=== PATIENT | male | born 1955 ===

== ENCOUNTER 2024-12-09 09:51 | Outpatient (REF) | payer MEDICARE, MEDICAID, SELFPAY ==
--- NOTE | 2024-12-09 09:57 | PFT_ITS ---
Flows: FEV1: 77 % of predicted at 2.06 L FVC: 62 % of predicted at 2.17 L FEV1/FVC: 95 % Bronchodilator response: Absent Volumes: Total lung capacity: 55 % of predicted at 3.33 L Residual volume: 59 % of predicted at 1.27 L Slow vital capacity: 54 % of predicted at 2.06 L Expiratory reserve volume: 90 % of predicted at 0.86 L Diffusion capacity: Severely decreased, adjusts to being mildly decreased after correction for alveolar ventilation. Impression: Moderate restrictive ventilatory defect with no bronchodilator response. Decreased diffusion capacity together with restrictive ventilatory defect suggests underlying pulmonary parenchymal disease. Clinical correlation is advised. MTDD
--- OUTSIDE RECORDS SUMMARY | 2024-12-09 10:35 | XMS_ITS | Patient Health Record ---
Author Organization [facility] Address [address], [place] [id number] Care Team Providers Care Booking Supervisor Name Role Phone Dillon Cameron Primary Care Provider [facility], Nursing Unavailable [phone] ShantelFlor landers Unavailable [phone] Nelson Briones Unavailable [phone] Allergies Allergen (clinical drug ingredient) Drug/Non Drug Allergy documented on EMR Reaction Allergy Type Onset Date Status metformin metFORMIN stomach upset Drug Allergy Act leann Results Component Value Reference Range Notes MICROALBUMIN, RANDOM URINE ( W/CREATININE) Reviewed date:06/25/2024 10:24:20 PM Interpretation:Normal Performing Lab:NL2, [employer] [facility] [address] [place], [place] [id number] Zayda Cotton Notes/Report: FASTING: UNKNOWN CREATININE, RANDOM URINE 72 20-320 mg/dL ALBUMIN, URINE 1.9 See Note: mg/dL Reference Range: Reference Range Not established ALBUMIN/CREATININE RATIO, RANDOM URINE 26 <30 mg/g creat The ADA defines abnormalities in albumin excretion as follows: Albuminuria Category Result (mg/g creatinine) Normal to Mildly increased <30 Moderately increased 30-299 Severely increased > OR = 300 The ADA recommends that at least two of three specimens collected within a 3-6 month period be abnormal before considering a patient to be within a diagnostic category. NO COLLECTION DATE RECEIVED. WE HAVE USED THE DATE THE SPECIMEN WAS RECEIVED BY THIS LABORATORY THE COLLECTION DATE. IF THIS IS INCORRECT, PLEASE CONTACT CLIENT SERVICES. PHONE NUMBER: Blood Sugar/finger stick Reviewed date:08/16/2024 02:39:22 PM Interpretation:High 166 Performing Lab: Notes/Report: High 166 COMPREHENSIVE METABOLIC [facility] Reviewed date:11/11/2024 12:10:14 PM Interpretation:Normal Performing Lab:NL2, [employer] [facility] Debbiecristian China Cotton Notes/Report: NON-FASTING NON-FASTING GLUCOSE 112 65-99 mg/dL Fasting reference interval For someone without known diabetes, a glucose value between 100 and 125 mg/dL is consistent with prediabetes and should be confirmed with a follow-up test. UREA NITROGEN (BUN) 15 7-25 mg/dL CREATININE 0.89 0.70-1.28 mg/dL EGFR 92 > OR = 60 mL/min/1.73m2 BUN/CREATININE RATIO SEE NOTE: 6-22 (calc) Not Reported: BUN and Creatinine are within reference range. SODIUM 137 135-146 mmol/L POTASSIUM 4.0 3.5-5.3 mmol/L CHLORIDE 104 98-110 mmol/L CARBON DIOXIDE 26 20-32 mmol/L CALCIUM 8.8 8.6-10.3 mg/dL PROTEIN, TOTAL 7.7 6.1-8.1 g/dL ALBUMIN 4.3 3.6-5.1 g/dL GLOBULIN 3.4 1.9-3.7 g/dL (calc) ALBUMIN/GLOBULIN RATIO 1.3 1.0-2.5 (calc) BILIRUBIN, TOTAL 0.5 0.2-1.2 mg/dL ALKALINE PHOSPHATASE 81 35-144 U/L AST 16 10-35 U/L ALT 10 9-46 U/L HEMOGLOBIN A1c Reviewed date:11/21/2024 09:42:59 AM Interpretation:7.9 Performing Lab:NL2, [employer] [facility] Zayda Cotton Notes/Report: NON-FASTING NON-FASTING HEMOGLOBIN A1c 7.9 <5.7 % For someone without known diabetes, a hemoglobin A1c value of 6.5% or greater indicates that they may have diabetes and this should be confirmed with a follow-up test. For someone with known diabetes, a value <7% indicates that their diabetes is well controlled and a value greater than or equal to 7% indicates suboptimal control. A1c targets should be individualized based on duration of diabetes, age, comorbid conditions, and other considerations. Currently, no consensus exists regarding use of hemoglobin A1c for diagnosis of diabetes for children. GLYCOHEMOGLOBIN PROFILE Reviewed date:03/10/2024 05:15:29 PM Interpretation:7.3 Performing Lab: Notes/Report: Original Ordering Provider: DILLON CAMERON MD [employer], [place] [address] Coater Associate - Katja Rodarte MD GLYCATED HEMOGLOBIN A1C 7.3 <6.5 % ESTIMATED AVERAGE GLUCOSE 163 PROSTATIC SPECIFIC ANTIGEN Reviewed date:03/10/2024 05:18:04 PM Interpretation:4.3 Performing Lab: Notes/Report: Original Ordering Provider: DILLON CAMERON MD [employer], [place] [address] Coater Associate - Katja Rodarte MD PROSTATIC SPECIFIC ANTIGEN 4.3 0.0-4.0 ng/mL The Siemens Advia Spryaur Chemiluminescent Immunoassay is used. Results obtained with different assay methods or kits cannot be used interchangeably. Results cannot be interpreted as absolute evidence of the presence or absence of malignant disease MICROALB/CREAT RATIO, RANDOM Reviewed date:03/10/2024 05:15:41 PM Interpretation:35 Performing Lab: Notes/Report: Original Ordering Provider: DILLON CAMERON MD [employer], [place] [address] Coater Associate - Katja Rodarte MD MICROALBUMIN, RANDOM 12.7 0.0-29.0 mg/L MICROALB/CRE RATIO RANDOM 35.2 0.0-30.0 mg/G CREATININE, RANDOM URINE 36 CBC Reviewed date:05/25/2024 10:26:49 AM Interpretation:Normal Performing Lab: Notes/Report: Normal HEMATOCRIT 48 HEMOGLOBIN 15.0 MCV 96 PLT COUNT 237 WBC 9.0 COMPREHENSIVE METABOLIC PANE L Reviewed date:05/25/2024 10:28:17 AM Interpretation:Alk phos 129 Performing Lab: Notes/Report: Alk phos 129 ALBUMIN 4.4 ALK PHOS 129 SGPT 14 SGOT 16 BILI,TOTAL 0.3 BUN 16 CALCIUM 9.9 CHLORIDE 100 CO2 27 CREAT 1.00 GLUCOSE 109 POTASSIUM 4.3 SODIUM 139 TOTAL PROTEIN 7.9 IRON AND TOTAL IRON BINDING CAPACITY Reviewed date:05/25/2024 10:29:05 AM Interpretation:Normal Performing Lab: Notes/Report: Normal IRON, TOTAL 81 IRON BINDING CAPACITY 349 % SATURATION 23 FERRITIN Reviewed date:05/25/2024 10:59:34 AM Interpretation:Normal Performing Lab: Notes/Report: Normal FERRITIN 104 IGA Reviewed date:05/25/2024 11:00:12 AM Interpretation:Normal Performing Lab: Notes/Report: Normal IGA 309 TISSUE TRANSGLUTAMINASE AB, IGA Reviewed date:05/25/2024 11:00:53 AM Interpretation:Normal Performing Lab: Notes/Report: Normal TISSUE TRANSGLUTAMINASE <2 C-REACTIVE PROTEIN Reviewed date:05/25/2024 11:01:34 AM Interpretation:Normal Performing Lab: Notes/Report: Normal C-REACTIVE PROTEIN 3 Diabetic Eye Exam Reviewed date:06/23/2024 02:52:48 PM Interpretation:stable Performing Lab: Notes/Report: stable Diabetic Foot Exam Reviewed date:06/23/2024 03:08:39 PM Interpretation:Normal Performing Lab: Notes/Report: Normal Reason For Referral Reason root canal post [place] n for teeth 6 and 18 Referral Organization [facility] Referring Provider First Name Flor Referring Provider Last Name Job Referring Provider Speciality Dental Gen eral Practice Referred Provider [facility] Referred Provider Specialty Dental Gener al Practice General Notes Ninoska Ortez 03:31:29 PM >Gave patient copy of xrays and referral Referral Priority Routine Reason Left shouldr pian wi th minimal resonse to injection in November; unable to tolerate PT. ?tear; ?caulitis;?other Diagnosis 1 Bursitis of left cathy ulder (M75.52) Referral Organization [facility] Referring Provider First Name Dillon Referring Provider Last Name Nisha Referring Provider Speciality Internal M edicine Referred Provider [facility] Referred Provider Specialty Orthopedic S urgery General Notes Rossy Rendon 10/2023 09:54:56 AM >Notes faxed to [phone],phone# [phone], Kasey Tavera 04/05/2024 11:01:58 AM > pt attended notes requestedAyse Katelyn 04/18/2024 03:18:14 PM > notes received and put into provider's folder Referral Priority Routine Referral Appointment Date 03/29/2024 Reason [facility] Urology PSa gradually increasing-now over 4 (Please send all PSA results with consult request) Diagnosis 1 Elevated prostate sp ecific antigen [PSA] (R97.20) Referral Organization [facility] Referring Provider First Name Dillon Referring Provider Last Name Eloysuman Referring Provider Speciality Internal M edicine Referred Provider Specialty Urology General Notes Kasey Tavera 11/30/2024 02:13:33 PM > p/w faxed with labs Referral Priority Routine Medications Medication SIG (Take, Route, Frequency, Duration) Notes Start Date End Date Status Sildenafil Citrate 100 mg 1 tab(s) orally one hour before sexual activity for 30 days sent to [facility] 09/16/2022 Active Trulicity Pen 3 mg/0.5 mL as DIRECTED INJECT SUBCUTANEOUSLY ONCE A WEEK 28 DAYS subcutaneously once a week for 28 days Diagnosis E11.9; replaces 1.5 mg dose Active famotidine 40 mg 1 tab(s) orally once a day (at bedtime) for 30 days 07/09/2023 Active simvastatin 20 mg 1 tab(s) orally once a day (at bedtime) for 30 day(s) Active FreeStyle Lite Glucose Monitor, 1 for 100 days Active Aspirin Low Dose 81 mg TAKE ONE TABLET BY MOUTH ONCE DAILY for 90 days Active FreeStyle Lite Test Strips, 50 E11.9 tests daily for 50 days E11.9; testing 1 times a day Active lisinopril 10 mg 1 tab(s) orally once a day for 30 days note dose change Active tamsulosin 0.4 mg 2 cap(s) orally once a day for 30 day(s) Active pregabalin 100 mg 1 cap(s) orally 2 times a day; on or after 11/01/23 for 30 days 10/10/2024 Active Terbinafine Hydrochloride, Topical 1% 1 renea applied topically 2 times a day for 14 days 12/29/2023 Not-Taking Farxiga 10 mg TAKE 1 TAB BY MOUTH EVERY DAY ORALLY ONCE A DAY 30 DAYS for 30 Active glipiZIDE 10 mg 1 tab(s) orally twic e a day for 30 days Active Freestyle Lancet, 100 tests twice a day for 50 days 02/26/2022 Active Metoprolol Succinate ER 25 mg TAKE 1 TAB ORALLY ONCE A DAY (REPLACES METOPTOLOL TARTRATE 25 2/DAY) for 30 Active Immunizations Vaccine Route Administration Date Status Comme nts Moderna Covid-19 Vaccine Administration - Second Dose (Single Dose 100 MCG/0.5ML 2ND) Unknown 06/13/2021 Administered Twinrix Hep A/Hep B Unknown 05/04/2019 Administered PPSV 23 Unknown 05/04/2019 Administered Moderna Covid-19 Booster Administration - Third Dose (Single Dose 50 mcg/0.25 mL Unknown 07/23/2020 Administered Moderna Covid-19 Booster Administration - Third Dose (Single Dose 50 mcg/0.25 mL Unknown 08/21/2020 Administered Hepatitis B (20 or more) Unknown 05/23/2021 Administered Td Unknown 05/23/2021 Administered MMR Unknown 05/13/2021 Administered Influenza Unknown 05/29/2021 Administered Moderna Covid-19 Booster Administration - Third Dose (Single Dose 50 mcg/0.25 mL Unknown 11/14/2021 Administered Influenza Unknown 04/24/2020 Administered Hepatitis B (20 or more) Unknown 05/27/2017 Administered Hepatitis B (20 or more) Unknown 05/04/2019 Administered Influenza IM Intramuscular 04/01/2022 Administered PCV 13 IM Intramuscular 05/04/2019 Administered Moderna Covid-19 Booster Administration - Third Dose (Single Dose 50 mcg/0.25 mL IM Intramuscular 10/09/2022 Administered Influenza IM Intramuscular 05/21/2023 Administered Hepatitis A IM Intramuscular 06/30/2023 Administered [facility] [id number] Shingrix (Zoster) Unknown 10/22/2022 Administered Flu-IIV4, p-free Unknown 05/05/2018 Administered MMR Unknown 05/27/2017 Administered Fluzone Unknown 05/19/2016 Administered Td Unknown 06/09/2015 Administered COMIRNATY Pfizer COVID-19 Vaccine 12y+ Unknown 06/05/2023 Administered Fluzone Unknown 04/19/2013 Administered Fluzone Unknown 05/03/2014 Administered Fluzone Unknown 05/06/2017 Administered Shingrix (Zoster) Unknown 01/20/2023 Administered COMIRNATY Pfizer COVID-19 Vaccine 12y+ Unknown 06/24/2024 Administered Influenza Unknown 06/24/2024 Administered Social History Tobacco Use: Social History Observation Description Date Details (start date - stop date) Never Smoker NA - NA Sex Assigned At : Social History Observation Description Sex Assigned At Male Tobacco Use Assessment MU Question Answer Notes What is your current smoking status? nonsmoker Problems Problem Type SNOMED Code ICD Code Onset Dates Problem Status W/U Status Risk Notes Problem Type II diabetes mellitus without complication (019698801) Type 2 diabetes mellitus without complications (E11.9) Active confirmed Problem Overweight (439082386) Overweight (E66.3) Active confirmed Problem Hyperlipidemia (73912412) Hyperlipidemia, unspecified (E78.5) Active confirmed Problem Essential hypertension (77640901) Essential (primary) hypertension (I10) Active confirmed Problem Acute non-ST segment elevation myocardial infarction (638233075) Non-ST elevation (NSTEMI) myocardial infarction (I21.4) Active confirmed Problem Atherosclerotic heart disease of [place] coronary artery without angina pectoris (955571969765487) Atherosclerotic heart disease of [place] coronary artery without angina pectoris (I25.10) Active confirmed Problem Allergic rhinitis due to food (519921735) Allergic rhinitis due to food (J30.5) Active confirmed Problem Left side sciatica (589730291813799) Sciatica, left side (M54.32) Active confirmed Problem Diastasis of muscle (268804997) Separation of muscle (nontraumatic), unspecified site (M62.00) Active confirmed Problem Bursitis of left shoulder (419311074794859) Bursitis of left shoulder (M75.52) Active confirmed Problem Erectile dysfunction (disorder) (976411134) Erectile dysfunction due to diseases classified elsewhere (N52.1) Active confirmed Problem Dysphagia (70157408) Dysphagia, unspecified (R13.10) Active confirmed Problem Lower urinary tract symptoms due to benign prostatic hypertrophy (63063044126467) Benign prostatic hyperplasia with lower urinary tract symptoms (N40.1) Active confirmed Problem Body mass index 25-29 - overweight (598456721) Body mass index [BMI] 28.0-28.9, adult (Z68.28) Active confirmed Problem Sheltered homelessness (653416895141939) Sheltered homelessness (Z59.01) Active confirmed Vital Signs Temperature 96.8 degrees Fahrenheit 11/10/2024 Blood pressure diastolic 66 11/10/2024 Oximetry 96 11/10/2024 Height 65 in 11/10/2024 Blood pressure systolic 118 11/10/2024 Weight 161.8 lbs 11/10/2024 BMI 26.92 kg/m2 11/10/2024 Procedures Procedure Date Ordered Date Performed Result Body Sit e Pulmonary Function Test 11/10/2024 Faxed to [facility] ECHO EXAM OF HEART 11/10/2024 Faxed to [facility] COLONOSCOPY FOR FOREIGN BODY 05/25/2024 10/13/2024 Negative EGD 05/25/2024 10/13/2024 Normal Encounters Encounter Location Date Provider Diagnosis [facility] [address] [place] [address] [place] [id number] 03/01/2024 Dillon Cameron Type 2 diabetes mellitus without complications E11.9 and Benign prostatic hyperplasia with lower urinary tract symptoms N40.[address] [phone] 12/10/2023 Nelson Briones [facility] [address], [place] [id number] 12/29/2023 Dillon Cameron Encounter for screening for COVID-19 Z11.52 ; Type 2 diabetes mellitus without complications E11.9 ; Essential (primary) hypertension I10 ; Tinea cruris B35.6 ; Sciatica, left side M54.32 ; Atherosclerotic heart disease of [place] coronary artery without angina pectoris I25.10 ; Sheltered homelessness Z59.01 and Diarrhea, unspecified R19.7 [facility] [address] [phone] 02/09/[address] [id number] 03/08/2024 Dillon Cameron Type 2 diabetes mellitus without complications E11.9 and Bursitis of left shoulder M75.[address] [id number] 03/09/2024 Nursing [facility] Encounter for screening, unspecified Z13.9 [facility] [address] [address] 03/22/2024 [facility] [address], [place] [id number] 03/29/2024 Dillon Cameron Encounter for screening for COVID-19 Z11.52 ; Elevated prostate specific antigen [PSA] R97.20 ; Type 2 diabetes mellitus without complications E11.9 ; Essential (primary) hypertension I10 ; Bursitis of left shoulder M75.52 ; Hyperlipidemia, unspecified E78.5 and Overweight E66.3 [facility] [address] [id number] 06/23/2024 Dillon Cameron Type 2 diabetes mellitus without complications E11.9 ; Encounter for screening for COVID-19 Z11.52 ; Sheltered homelessness Z59.01 ; Benign prostatic hyperplasia with lower urinary tract symptoms N40.1 ; Bursitis of left shoulder M75.52 ; Atherosclerotic heart disease of [place] coronary artery without angina pectoris I25.10 and Essential (primary) hypertension I10 [address] [id number] 08/16/2024 Dillon Cameron Encounter for screening for COVID-19 Z11.52 ; Type 2 diabetes mellitus without complications E11.9 ; Sheltered homelessness Z59.01 ; Essential (primary) hypertension I10 and Bursitis of left shoulder M75.52 [facility] [address] [id number] 11/10/2024 Dillon Cameron Type 2 diabetes mellitus without complications E11.9 ; Dyspnea, unspecified R06.00 ; Encounter for screening for COVID-19 Z11.52 and Essential (primary) hypertension I10 [address] [id number] 12/29/2023 Dillon Cameron [address] [id number] 01/04/2024 Dillon Cameron [address] [id number] 02/08/2024 Dillon Cameron Type 2 diabetes mellitus without complications E11.[address] [id number] 02/19/2024 Dillon Cameron [address] [id number] 02/23/2024 Dillon Cameron Type 2 diabetes mellitus without complications E11.[address] [id number] 02/28/2024 Dillon Cameron [address] [id number] 03/01/2024 Dillon Cameron [address] [id number] 03/08/2024 Dillon Cameron [address] [id number] 03/16/2024 Dillon Cameron [address] [id number] 03/29/2024 Dillon Cameron [address] [id number] 04/19/2024 Dillon Cameron [address] [id number] 09/27/2024 Dillon Cameron Assessments Encounter Date Diagnosis (ICD Code) Assessment Notes Treatment Notes Treatment Clinical Notes Section Notes 03/01/2024 Type 2 diabetes mellitus without complications (ICD-10 - E11.9) 12/29/2023 Type 2 diabetes mellitus without complications (ICD-10 - E11.9) His fastings are at intermedtaie goal-most under 140. Stacia stay put on meds and work diet Sees eye care in 12/29/2023 Encounter for screening for COVID-19 (ICD-10 - Z11.52) Covid screening is negative. Discussed in detail with patient how to practice social distancing by avoiding public spaces and crowds now, wearing a mask in public to keep nose and mouth covered, and washing hands frequently especially before eating and after using the bathroom. Return to clinic if you develop any symtpoms of concern to be rescreened or go to the emergency room if you are having concerning symptoms for COVID-19. 03/08/2024 Type 2 diabetes mellitus without complications (ICD-10 - E11.9) sound likehe is doing well. Advised he needs labs. Strip rx sent 03/08/2024 Bursitis of left shoulder (ICD-10 - M75.52) As satted before, time forortho. Will leththme decide on advanced imaging need. May inject again and try to rehab but really failed first injetcion 03/09/2024 Encounter for screening, unspecified (ICD-10 - Z13.9) Lab work drawn as ordered, per protocol using aseptic technique. Client will be notified of all lab values within two weeks, Client agrees with plan, allowed to clarify questions about plan. 03/29/2024 Elevated prostate specific antigen [PSA] (ICD-10 - R97.20) reviewed the uncertain predictive value of PSA at just iver 4 and why I wanted urology opinion. He understood. No sx at his time 03/29/2024 Encounter for screening for COVID-19 (ICD-10 - Z11.52) Covid screening is negative. Discussed in detail with patient how to practice social distancing by avoiding public spaces and crowds now, wearing a mask in public to keep nose and mouth covered, and washing hands frequently especially before eating and after using the bathroom. Return to clinic if you develop any symtpoms of concern to be rescreened or go to the emergency room if you are having concerning symptoms for COVID-19. 06/23/2024 Type 2 diabetes mellitus without complications (ICD-10 - E11.9) Interestign bump up in glucose after shoulder shot. I am increasing Trulicyt to 3 mg and he is working on diet. Will see ehwre this goes. Could go ozempoic next 08/16/2024 Type 2 diabetes mellitus without complications (ICD-10 - E11.9) He ahd nmoved rx's to [facility] and lkast Truliciuty wne [facility]. Resnt todya. Stacia see hoe much prgress he makes 08/16/2024 Encounter for screening for COVID-19 (ICD-10 - Z11.52) Covid screening is negative. Discussed in detail with patient how to practice social distancing by avoiding public spaces and crowds now, wearing a mask in public to keep nose and mouth covered, and washing hands frequently especially before eating and after using the bathroom. Return to clinic if you develop any symtpoms of concern to be rescreened or go to the emergency room if you are having concerning symptoms for COVID-19. 11/10/2024 Type 2 diabetes mellitus without complications (ICD-10 - E11.9) Fastings still above goal but improving. For now stacia follow pending A1C result 11/10/2024 Dyspnea, unspecified (ICD-10 - R06.00) Soemwhat progressive sx,. I am concerned about the crackles and see this as more possible ILD than cardiac. Charles lemuel to go after both: CXR (May need CT); PFT; echo. Incarcerated a long time; not sure abotu occupational background 02/08/2024 Type 2 diabetes mellitus without complications (ICD-10 - E11.9) 02/23/2024 Type 2 diabetes mellitus without complications (ICD-10 - E11.9) 03/01/2024 Benign prostatic hyperplasia with lower urinary tract symptoms (ICD-10 - N40.1) 12/29/2023 Essential (primary) hypertension (ICD-10 - I10) BP now low. I am backing off beta cassandra a bit and if stays 90 then ACEI next 03/29/2024 Type 2 diabetes mellitus without complications (ICD-10 - E11.9) prince much improved on Trulicty-contin ue with his Farxiga and glipi. 06/23/2024 Encounter for screening for COVID-19 (ICD-10 - Z11.52) Covid screening is negative. Discussed in detail with patient how to practice social distancing by avoiding public spaces and crowds now, wearing a mask in public to keep nose and mouth covered, and washing hands frequently especially before eating and after using the bathroom. Return to clinic if you develop any symtpoms of concern to be rescreened or go to the emergency room if you are having concerning symptoms for COVID-19. 08/16/2024 Sheltered homelessness (ICD-10 - Z59.01) Issues with temp control at his facility 11/10/2024 Encounter for screening for COVID-19 (ICD-10 - Z11.52) Covid screening is negative. Discussed in detail with patient how to practice social distancing by avoiding public spaces and crowds now, wearing a mask in public to keep nose and mouth covered, and washing hands frequently especially before eating and after using the bathroom. Return to clinic if you develop any symtpoms of concern to be rescreened or go to the emergency room if you are having concerning symptoms for COVID-19. 12/29/2023 Tinea cruris (ICD-10 - B35.6) Work on dryness and terbinafine for 2 weeks 03/29/2024 Essential (primary) hypertension (ICD-10 - I10) BP excellent and satying on lisino and beta cassandra 06/23/2024 Sheltered homelessness (ICD-10 - Z59.01) [facility]. having troublke with the heat 08/16/2024 Essential (primary) hypertension (ICD-10 - I10) BP adequate i current rx 11/10/2024 Essential (primary) hypertension (ICD-10 - I10) BP low for awhile. I am cutting back the lisinopril 12/29/2023 Sciatica, left side (ICD-10 - M54.32) startingPT 03/29/2024 Bursitis of left shoulder (ICD-10 - M75.52) May be mroe calcific tendinitis. We ahsll se if shot helps. He ahs hiome exercise program 06/23/2024 Benign prostatic hyperplasia with lower urinary tract symptoms (ICD-10 - N40.1) Sy,ptom burden less. No roger in rx 08/16/2024 Bursitis of left shoulder (ICD-10 - M75.52) Improved but steroids karina off. Considering definitive rx next 12/29/2023 Atherosclerotic heart disease of [place] coronary artery without angina pectoris (ICD-10 - I25.10) event 13 years ao. No current sx. Note EF 50% range 03/29/2024 Hyperlipidemia, unspecified (ICD-10 - E78.5) last lipids less than 2 years ago [place]. On statin-stacia recheck and next encounter 06/23/2024 Bursitis of left shoulder (ICD-10 - M75.52) [facility] going for MRI - iassume to look for tear or labral problem. At least he is more comfortable 12/29/2023 Sheltered homelessness (ICD-10 - Z59.01) 03/29/2024 Overweight (ICD-10 - E66.3) IMPROVED! 06/23/2024 Atherosclerotic heart disease of [place] coronary artery without angina pectoris (ICD-10 - I25.10) well controlled 12/29/2023 Diarrhea, unspecified (ICD-10 - R19.7) Try for mor fiber. decrease metop 06/23/2024 Essential (primary) hypertension (ICD-10 - I10) BP excellent-no change at presnt 12/29/2023 Other 03/08/2024 Other Time spent in visit: 10 minutes Covid verbal screening negative. 03/29/2024 Other 06/23/2024 Other 08/16/2024 Other 11/10/2024 Other For now chalk up pan abd sx to metformin but reassess closely 03/22/2024 Pt came f or fill appt #14-pt states he had RCT (points to #6) and filling #18(pt points to) at [facility] and has appts for other fillings there. Pt prefers at this time to continue Tx at [facility]-states i am still healing from what they did there Pt schedued for recall exam here in Aug 2024. DPD/ar Plan Of Treatment Pending Test Test Name Order Date Blood Sugar/finger stick 11/17/2023 Blood Sugar/finger stick 09/16/2022 Blood Sugar/finger stick 06/02/2023 Blood Sugar/finger stick 07/09/2023 Pulmonary Function Test 11/10/2024 HEMOGLOBIN A1c 09/15/2023 CR Chest Routine 2 Views 11/10/2024 ECHO EXAM OF HEART 11/10/2024 Next Appt Details Provider Name:Dillon Eloysuman, 12/22/2024 04:30:00 PM, [address] [place] [address], [phone], Insurance Providers Payer Name Payer Address Payer Phone Subscriber Number Group Number Insured Name Patient Relationship to Insured Coverage Start Date Coverage End Date [place] Medicare Part A [employer] [facility] [address] [place] [address] [id number] Henry Neville Self - patient is the insured 2 [employer] [address] [place] [address] [id number] Henry Neville Self - patient is the insured 3 Medications Administered Medication Instructions Date of Administration Dosage Notes Triamcinolone acetonide 07/09/2023 40 mg Left shoulder injection Kenalog - 40 LOT [id number] EXP 11/2023 [facility] [id number] Medical (General) History Medical History History ICD Code HTN Type 2 Diabetes High Cholesterol HX of [place] Hospitalization History Reason Date(Month/Year) [place] [address]
[2024-12-09 10:45] VITALS: PULSE 97; O2SAT 95
== END 2024-12-09 09:52 | disposition home or self-care (01) ==
LOC: HO.RESP 09:51
PROVIDERS: PCP Internal Medicine; Visit Provider Internal Medicine
DX: R06.00 Dyspnea, unspecified (principal)
CPT/HCPCS: 94010; 94640; 94729

== ENCOUNTER 2024-12-26 09:56 | Outpatient (REF) | payer MEDICARE, MEDICAID, SELFPAY ==
--- NOTE | ~2024-12-26 | XR_ITS ---
CLINICAL HISTORY: DYSPNEA Chest Radiographs, 2 views Comparison: None available Findings: No cardiomegaly. Normal mediastinal contours. Radiopaque foreign body measuring 3 mm in the midline on the PA view is not seen on the lateral view and is likely outside of the patient. No pneumothorax. Faint/patchy bilateral opacity greatest in the left lower lobe. No pleural effusion. Normal upper abdomen. No acute fracture. Impression: Bilateral opacity may indicate multifocal pneumonia. It does not have the typical appearance of edema. Chronic lung pathology may also be considered. This document has been electronically signed by: Sarah Juarez MD on 12/27/2024 13:44:34
--- OUTSIDE RECORDS SUMMARY | 2024-12-26 10:58 | XMS_ITS | Patient Health Record ---
Author Organization [facility] Address [address] [place], [place] [id number] Care Team Providers Care Vibration Analyst Name Role Phone Dillon Cameron Primary Care Provider [facility], Nursing Unavailable [phone] Flor Cho Unavailable [phone] Allergies Allergen (clinical drug ingredient) Drug/Non Drug Allergy documented on EMR Reaction Allergy Type Onset Date Status metformin metFORMIN stomach upset Drug Allergy Act leann Results Component Value Reference Range Notes MICROALBUMIN, RANDOM URINE ( W/CREATININE) Reviewed date:06/25/2024 10:24:20 PM Interpretation:Normal Performing Lab:NL2, [facility] [address] [place], [place] [id number] Zayda Cotton Notes/Report: FASTING: UNKNOWN CREATININE, RANDOM [...] Performing Lab: Notes/Report: High 166 COMPREHENSIVE METABOLIC PANE L-Sweetie High Reviewed date:11/11/2024 12:10:14 PM Interpretation:Normal Performing Lab:[employer], [facility] Zayda Cotton Notes/Report: NON-FASTING NON-FASTING GLUCOSE 112 65-99 [...] A1c Reviewed date:11/21/2024 09:42:59 AM Interpretation:7.9 Performing Lab:[facility] [employer], [facility] Zayda Cotton Notes/Report: NON-FASTING NON-FASTING HEMOGLOBIN [...] Notes/Report: Original Ordering Provider: DILLON CAMERON MD [email or web address], a member of [address] [address] Surgical Assistant - Katja Rodarte MD GLYCATED HEMOGLOBIN A1C 7.3 <6.5 % ESTIMATED AVERAGE GLUCOSE 163 PROSTATIC SPECIFIC ANTIGEN Reviewed date:03/10/2024 05:18:04 PM Interpretation:4.3 Performing Lab: Notes/Report: Original Ordering Provider: DILLON CAMERON MD [email or web address], [place] [address] Surgical Assistant - Katja Rodarte MD PROSTATIC SPECIFIC ANTIGEN 4.3 0.0-4.0 ng/mL The Siemens Advia GCLABS ([employer])aur Chemiluminescent Immunoassay is used. Results obtained with different assay methods or kits cannot be used interchangeably. Results cannot be interpreted as absolute evidence of the presence or absence of malignant disease MICROALB/CREAT RATIO, RANDOM Reviewed date:03/10/2024 05:15:41 PM Interpretation:35 Performing Lab: Notes/Report: Original Ordering Provider: DILLON CAMERON MD [email or web address] [address] Surgical Assistant - Katja Rodarte MD MICROALBUMIN, RANDOM 12.7 [...] Reason For Referral Reason root canal post coquille n for teeth 6 and 18 Referral Organization [facility] Referring Provider First Name Flor Referring Provider Last Name Tammie Referring Provider Speciality Dental Gen eral Practice Referred Provider [facility] Referred Provider Specialty Dental Gener al Practice General Notes Ninoska Ortez 03:31:29 PM >Gave patient copy of xrays and referral Referral Priority Routine Reason Left shouldr pian wi th minimal resonse to injection in November; unable to tolerate PT. ?tear; ?caulitis;?other Diagnosis 1 Bursitis of left cathy ulder (M75.52) Referral Organization [facility] Referring Provider First Name Dillon Referring Provider Last Name Nisha Referring Provider Speciality Internal M edicine Referred Provider [facility] Surgeons Referred Provider Specialty Orthopedic S urgery General Notes Rossy Rendon 10/2023 09:54:56 AM >Notes faxed to [phone],phone# [phone], Kasey Tavera 04/05/2024 11:01:58 AM > pt attended notes requestedAyse Katelyn 04/18/2024 03:18:14 PM > notes received and put into provider's folder Referral Priority Routine Referral Appointment Date 03/29/2024 Reason [facility] Urology Phone: PSa gradually increasing-now over 4 (Please send all PSA results with consult request) Diagnosis 1 Elevated prostate sp ecific antigen [PSA] (R97.20) Referral Organization [facility] Referring Provider First Name Dillon Referring Provider Last Name Nisha Referring Provider Speciality Internal edicine Referred Provider Specialty Urology General Notes Kasey Tavera 11/30/2024 02:13:33 PM > p/w faxed with labs Referral Priority Routine Referral Appointment Date 02/09/2025 Reason [facility] Pulmonology Center, [address] [place] [address] Alexis Anton, [place] [address] P: [phone] F: [phone] retsrictive lung disease with crackles on exam. 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 CT pending; PFT at [facility] in December Referral Organization [facility] Referring Provider First Name Dillon Referring Provider Last Name Nisha Referring Provider Speciality Internal edicine Referred Provider Specialty Pulmonary Di seases General Notes Denise Iraheta 10:43:49 AM > Faxed to [facility] pulmonology Referral Priority Routine Medications Medication SIG (Take, Route, Frequency, Duration) Notes Start Date End Date Status FreeStyle Lite Test Strips, 50 E11.9 tests daily for 50 days E11.9; testing 1 times a day Active Terbinafine Hydrochloride, Topical 1% 1 renea applied topically 2 times a day for 14 days 12/29/2023 Not-Taking tamsulosin 0.4 mg 2 cap(s) orally once a day for 30 day(s) Active Freestyle Lancet, 100 tests twice a day for 50 days 02/26/2022 Active Metoprolol Succinate ER 25 mg TAKE 1 TAB ORALLY ONCE A DAY (REPLACES METOPTOLOL TARTRATE 25 2/DAY) for 30 Active Trulicity Pen 3 mg/0.5 mL as DIRECTED INJECT SUBCUTANEOUSLY ONCE A WEEK 28 DAYS subcutaneously once a week for 28 days Diagnosis E11.9; replaces 1.5 mg dose Active FreeStyle Lite Glucose Monitor, 1 for 100 days Active pregabalin 100 mg 1 cap(s) orally 2 times a day; on or after 11/01/23 for 30 days 10/10/2024 Active Sildenafil Citrate 100 mg 1 tab(s) orally one hour before sexual activity for 30 days sent to [facility] 09/16/2022 Active Farxiga 10 mg TAKE 1 TAB BY MOUTH EVERY DAY ORALLY ONCE A DAY 30 DAYS for 30 Active famotidine 40 mg 1 tab(s) orally once a day (at bedtime) for 30 days 07/09/2023 Active lisinopril 10 mg 1 tab(s) orally once a day for 30 days note dose change Active glipiZIDE 10 mg 1 tab(s) orally twic e a day for 30 days Active simvastatin 20 mg 1 tab(s) orally once a day (at bedtime) for 30 day(s) Active Aspirin Low Dose 81 mg TAKE ONE TABLET BY MOUTH ONCE DAILY for 90 days Active Immunizations Vaccine Route Administration Date Status [...] A IM Intramuscular 06/30/2023 Administered [facility] [id number] Shingrix (Zoster) Unknown 10/22/2022 Administered Flu-IIV4, p-free Unknown 05/05/2018 Administered MMR Unknown 05/27/2017 Administered Fluzone Unknown 05/19/2016 Administered Td Unknown 06/09/2015 Administered ChoicePass COVID-19 Vaccine 12y+ Unknown 06/05/2023 Administered Fluzone Unknown 04/19/2013 Administered Fluzone Unknown 05/03/2014 Administered Fluzone Unknown 05/06/2017 Administered Shingrix (Zoster) Unknown 01/20/2023 Administered [employer]IR[employer] COVID-19 Vaccine 12y+ Unknown 06/24/2024 Administered Influenza [...] Problem Type II diabetes mellitus without complication (571120598) Type 2 diabetes mellitus without complications (E11.9) Active confirmed Problem Overweight (424524465) Overweight (E66.3) Active confirmed Problem Hyperlipidemia (84118253) Hyperlipidemia, unspecified (E78.5) Active confirmed Problem Essential hypertension (77858042) Essential (primary) hypertension (I10) Active confirmed Problem Acute non-ST segment elevation myocardial infarction (838863210) Non-ST elevation (NSTEMI) myocardial infarction (I21.4) Active confirmed Problem Atherosclerotic heart disease of [place] coronary artery without angina pectoris (053534445148857) Atherosclerotic heart disease of [place] coronary artery without angina pectoris (I25.10) Active confirmed Problem Allergic rhinitis due to food (236961095) Allergic rhinitis due to food (J30.5) Active confirmed Problem Disorder of lung (18284592) 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 confirmed Problem Left side sciatica (017520704975491) Sciatica, left side (M54.32) Active confirmed Problem Diastasis of muscle (125145150) Separation of muscle (nontraumatic), unspecified site (M62.00) Active confirmed Problem Bursitis of left shoulder (472434273536965) Bursitis of left shoulder (M75.52) Active confirmed Problem Erectile dysfunction (disorder) (731060433) Erectile dysfunction due to diseases classified elsewhere (N52.1) Active confirmed Problem Dysphagia (82858140) Dysphagia, unspecified (R13.10) Active confirmed Problem Lower urinary tract symptoms due to benign prostatic hypertrophy (69800817818324) Benign prostatic hyperplasia with lower urinary tract symptoms (N40.1) Active confirmed Problem Body mass index 25-29 - overweight (262104814) Body mass index [BMI] 28.0-28.9, adult (Z68.28) Active confirmed Problem Sheltered homelessness (863526413141204) Sheltered homelessness (Z59.01) Active confirmed Vital Signs Temperature 98 degrees Fahrenheit 12/22/2024 Blood pressure diastolic 71 12/22/2024 Oximetry 95 12/22/2024 Height 65 in 12/22/2024 Blood pressure systolic 107 12/22/2024 Weight 157.4 lbs 12/22/2024 BMI 26.19 kg/m2 12/22/2024 Procedures Procedure Date Ordered Date Performed Result Body Sit e ECHO EXAM OF HEART 11/10/2024 02/07/25 Pulmonary Function Test 11/10/2024 12/09/2024 Abnormal COLONOSCOPY FOR FOREIGN BODY 05/25/2024 10/13/2024 Negativ e EGD 05/25/2024 10/13/2024 Normal Encounters Encounter Location Date Provider Diagnosis [facility] [address] [place] [address] [place] [id number] 03/01/2024 Dillon Cameron Type 2 diabetes mellitus without complications E11.9 and Benign prostatic hyperplasia with lower urinary tract symptoms N40.1 [facility] for [facility] [address] [place], [place] [id number] 12/29/2023 Dillon Cameron Encounter for screening for COVID-19 Z11.52 ; Type 2 diabetes mellitus without complications E11.9 ; Essential (primary) hypertension I10 ; Tinea cruris B35.6 ; Sciatica, left side M54.32 ; Atherosclerotic heart disease of [place] coronary artery without angina pectoris I25.10 ; Sheltered homelessness Z59.01 and Diarrhea, unspecified R19.7 [facility] [address] [address] 02/09/2024 Flor Cho [address] [id number] 03/08/2024 Dillon Cameron Type 2 diabetes mellitus without complications E11.9 and Bursitis of left shoulder M75.52 [facility] [address] [place], [place] [id number] 03/09/[address] [facility] Encounter for screening, unspecified Z13.9 [facility] [address] [place] [address] 03/22/2024 Flor Cho [facility] for [address] [id number] 03/29/2024 Dillon Cameron Encounter for screening for COVID-19 Z11.52 ; Elevated prostate specific antigen [PSA] R97.20 ; Type 2 diabetes mellitus without complications E11.9 ; Essential (primary) hypertension I10 ; Bursitis of left shoulder M75.52 ; Hyperlipidemia, unspecified E78.5 and Overweight E66.3 [facility] for [address] [id number] 06/23/2024 Dillon Cameron Type 2 diabetes mellitus without complications E11.9 ; Encounter for screening for COVID-19 Z11.52 ; Sheltered homelessness Z59.01 ; Benign prostatic hyperplasia with lower urinary tract symptoms N40.1 ; Bursitis of left shoulder M75.52 ; Atherosclerotic heart disease of [place] coronary artery without angina pectoris I25.10 and Essential (primary) hypertension I10 [facility] for [address] [id number] 08/16/2024 Dillon Cameron Encounter for screening for COVID-19 Z11.52 ; Type 2 diabetes mellitus without complications E11.9 ; Sheltered homelessness Z59.01 ; Essential (primary) hypertension I10 and Bursitis of left shoulder M75.52 [facility] for [address] [id number] 11/10/2024 Dillon Cameron Type 2 diabetes mellitus without complications E11.9 ; Dyspnea, unspecified R06.00 ; Encounter for screening for COVID-19 Z11.52 and Essential (primary) hypertension I10 [facility] for [address] [id number] 12/22/2024 Dillon Cameron Encounter for screening for COVID-19 Z11.52 ; Other alveolar and parieto-alveolar conditions J84.09 ; Type 2 diabetes mellitus without complications E11.9 ; Sheltered homelessness Z59.01 ; Benign prostatic hyperplasia with lower urinary tract symptoms N40.1 and Atherosclerotic heart disease of [place] coronary artery without angina pectoris I25.[address] [id number] 12/29/2023 Dillon Cameron [address] [id number] 01/04/2024 Dillon Cameron [address] [id number] 02/08/2024 Dillon Cameron Type 2 diabetes mellitus without complications E11.[address] [id number] 02/19/2024 Dillon Cameron [address] [id number] 02/23/2024 Dillon Cameron Type 2 diabetes mellitus without complications E11.[address] [id number] 02/28/2024 Dillon Cameron [address] [id number] 03/01/2024 Dillon Cameron [address] [id number] 03/08/2024 Dillon Cameron [address] [id number] 03/16/2024 Dillon Cameron [address] [id number] 03/29/2024 Dillon Cameron [address] [id number] 04/19/2024 Dillon Cameron [address] [id number] 09/27/2024 Dillon Cameron Assessments Encounter Date Diagnosis [...] Serios and lkast Truliciuty wne to to [facility]. Charisse nellietovaniles. Stacia see hoe much prgress he makes [...] as more possible ILD than cardiac. Charles hdez to go after both: CXR (May need CT); PFT; echo. Incarcerated a long time; not sure abotu occupational background 12/22/2024 Other alveolar and parieto-alveolar conditions (ICD-10 - J84.09) POFT reviewed- decreased DLCO and volumes c/w retsrictive diseae. findings suggest interstitial. 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 02/08/2024 Type 2 diabetes mellitus without complications [...] you are having concerning symptoms for COVID-19. 12/22/2024 Type 2 diabetes mellitus without complications (ICD-10 - E11.9) control improved! 12/29/2023 Tinea cruris (ICD-10 - B35.6) Work on dryness and terbinafine for 2 weeks 03/29/2024 Essential (primary) hypertension (ICD-10 - I10) BP excellent and satying on lisino and beta cassandra 06/23/2024 Sheltered homelessness (ICD-10 - Z59.01) IN [facility] supported housing. having troublke with the heat 08/16/2024 Essential (primary) hypertension (ICD-10 - I10) BP adequate i current rx 11/10/2024 Essential (primary) hypertension (ICD-10 - I10) BP low for awhile. I am cutting back the lisinopril 12/22/2024 Sheltered homelessness (ICD-10 - Z59.01) supported housing at present-goingwe ll 12/29/2023 Sciatica, left side (ICD-10 - M54.32) [...] steroids karina off. Considering definitive rx next 12/22/2024 Benign prostatic hyperplasia with lower urinary tract symptoms (ICD-10 - N40.1) PSA had gone up-wiaitng for urology 12/29/2023 Atherosclerotic heart disease of [place] coronary artery without angina pectoris (ICD-10 - [...] problem. At least he is more comfortable 12/22/2024 Atherosclerotic heart disease of [place] coronary artery without angina pectoris (ICD-10 - I25.10) clinicalle stable. Still wantt o get echo for this and pulm issues 12/29/2023 Sheltered homelessness (ICD-10 - Z59.01) 03/29/2024 Overweight (ICD-10 - E66.3) IMPROVED! 06/23/2024 Atherosclerotic heart disease of [place] coronary artery without angina pectoris (ICD-10 - [...] abd sx to metformin but reassess closely 12/22/2024 Other 03/22/2024 Pt came f or fill appt #14-pt states he had RCT (points to #6) and filling #18(pt points to) at [facility] and has appts for other fillings there. Pt prefers at this time to continue Tx at [facility]-states i am still healing from what they did there Pt schedued for recall exam here in Aug 2024. DPD/ar Plan Of Treatment Pending Test Test Name Order Date Blood Sugar/finger stick 07/09/2023 Blood Sugar/finger stick 11/17/2023 Blood Sugar/finger stick 09/16/2022 Blood Sugar/finger stick 06/02/2023 HEMOGLOBIN A1c 09/15/2023 CR Chest Routine 2 Views 11/10/2024 CT Chest High Resolution WO 12/22/2024 ECHO EXAM OF HEART 11/10/2024 Next Appt Details Provider Name:Dillon Cameron, 02/14/2025 03:00:00 PM, [address] [place] [address], [employer], [place], [phone], Insurance Providers Payer Name Payer Address Payer Phone Subscriber Number Group Number Insured Name Patient Relationship to Insured Coverage Start Date Coverage End Date [place] Medicare Part A [employer] [address] [place] [address] [id number] Henry Neville Self - patient is the insured 2 [employer] [address] [place] [id number] Henry Neville Self - patient is the insured 3 Medications Administered Medication Instructions Date of Administration Dosage Notes Triamcinolone acetonide 07/09/2023 40 mg Left shoulder injection Kenalog - 40 LOT [id number] EXP 11/2023 [facility] [id number] Medical (General) History Medical History History ICD Code HTN Type 2 Diabetes High Cholesterol HX of [place] Hospitalization History Reason Date(Month/Year) [place] [address]
== END 2024-12-26 09:57 | disposition home or self-care (01) ==
LOC: HO.XRAY 09:56
PROVIDERS: PCP Internal Medicine; Visit Provider Internal Medicine
DX: R06.00 Dyspnea, unspecified (principal)
CPT/HCPCS: 71046

== ENCOUNTER → 2024-12-26 10:05 | Outpatient (BNV) | payer MEDICARE, MEDICAID, SELFPAY | PROVIDERS: PCP Internal Medicine; Visit Provider Radiology Diagnostic Radiology | DX: R91.8 Other nonspecific abnormal finding of lung field (principal) | CPT/HCPCS: 71046 ==

== ENCOUNTER 2025-02-09 14:18 | Outpatient (AMB) | payer MEDICARE, MEDICAID, SELFPAY ==
--- OUTSIDE RECORDS SUMMARY | 2025-02-09 14:20 | XMS_ITS | Encounter Summary ---
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 Not on lashaun e 11/01/2022 Are you concerned about learning? Not on file 11/01/2022 No 11/01/2022 No 11/01/2022 Digital Access Answer Date Recorded No 12/02/2022 No 12/02/2022 Reliable internet access at home? Not on file 12/02/2022 Device with a working camera? Not on file Sex and Gender Information Value Date Recorded Sex Assigned at Not on file Legal Sex Male 2:58 PM EDT Gender Identity Not on file Sexual Orientation Not on file documented as of this encounter Plan of Treatment Not on file documented as of this encounter Visit Diagnoses Not on filedocumented in this encounter Care Teams Biofuels Plant Operations Engineer Relationship Specialty Start Date End Date Dennis Cameron MD [address] [place] [address] PCP - General Internal Medicine 02/27/22 documented as of this encounter Additional Source Comments The information contained in this document represents components of the legal health record. It is not the complete legal health record.[facility]
--- OUTSIDE RECORDS SUMMARY | 2025-02-09 14:20 | XMS_ITS | Clinical Summary ---
Author Organization [facility] Address [address] [place] [address] Care Team Providers Care Junction Maker Name Role Phone Unavailable Primary Care Provider Unavailabl e Source Comments PLEASE NOTE, if this patient is a minor, it may be UNLAWFUL to discuss sensitive information that is contained in these records (such as FAMILY PLANNING, MENTAL HEALTH or SUBSTANCE ABUSE) with the minor patient's parent or other person without the patient's specific authorization.[facility] Medications fluoride, sodium, (SF 5000 PLUS) 1.1 % creaIndications: Encounter for dental examination Place in mouth once daily apply a thin ribbon on toothbrush. [place] thoroughly once daily for two minutes, preferably at bedtime. After use expectorate. For best results, do not eat, drink, or rinse for 30 minutes. 51 g 2 Active Active Problems Problem Noted Date Diagnosed Date Acute myocardial infarction ([facility]) 07/2010 Type 2 diabetes mellitus wit hout complications ([facility]) Encounters Date Type Department Care Team Description 01/26/2025 10:40 AM EDT Office Visit [facility] [id number] [place] [phone] Waldemar Barger DDS 11/25/2024 10:20 AM EDT Office Visit [facility] [address] [place] [phone] Jason Shaffer RDH from Last 3 Months Social History Tobacco Use Types Packs/Day Years Used Date Smoking Tobacco: Never Assessed Social Connections Answer Date Recorded Connectedness 0 03/20/2024 Financial Resource Strain Answer Date R ecorded Financial Resource Strain 0 2023 Stress Answer Date Recorded Stress 0 02/09/2024 Physical Activity Answer Date Recorded Physical Activity 0 02/09/2024 Food Insecurity Answer Date Recorded Food 0 03/31/2024 Transportation Needs Answer Date Record ed Transportation 0 02/09/2024 Housing Stability Answer Date Recorded Housing 0 02/09/2024 Safety and Environment Answer Date Landon rded Safety 0 02/09/2024 Utilities Answer Date Recorded Utilities 0 02/09/2024 Employment Answer Date Recorded Stress 0 03/20/2024 Sex and Gender Information Value Date Recorded Sex Assigned at Not on file Legal Sex Male 12:49 PM PDT Gender Identity Not on file Sexual Orientation Not on file Last Filed Vital Signs Vital Sign Reading Time Taken Comments Blood Pressure 131/88 09/30/2024 10:12 AM EDT Pulse 78 09/30/2024 10:12 AM EDT Temperature - - Respiratory Rate - - Oxygen Saturation - - Inhaled Oxygen Concentration - - Weight - - Height - - Body Mass Index - - Plan of Treatment Upcoming Encounters Date Type Department Care Team (Late st Contact Info) Description 03/29/2025 11:00 AM EDT Office Visit [facility] [address] [place] [phone] Waldemar Barger, DDS [address] [place] [address] 06/09/2025 10:20 AM EST Office Visit [facility] [address] [place] [phone] Jason Shaffer, [facility] [address] [place] [address] Health Maintenance Due Date Last Done Comments Diabetes Foot Exam 1953 Hemoglobin A1c 1953 Hepatitis C Screening 1953 Lipid Screening 1953 Serum Creatinine 1953 Tobacco Screening 1953 Urine Albumin Creatinine Rat io Screening [address] Colonography 1998 Colonoscopy 1998 Colorectal Cancer Screening 1998 FIT/gFOBT 1998 Fecal DNA 1998 Flexible Sigmoidoscopy 1998 Imm-Zoster, Recombinant (1 of 2) 12/07/2003 Abdominal Aortic Aneurysm Screening 2018 Falls Prevention 2018 Imm-DTaP/Tdap/Td (1 - Tdap) 05/24/2021 05/23/2021, 1 08/10/2014 Alcohol and Drug Screen 07/06/2024 Depression Annual Screen 07/06/2024 [id number] ( season) 2024 06/24/2024, 06/05/2023, 10/09/2022, Additional history exists Imm-Influenza (#1) 2025 06/24/2024, 1 07/21/2022, 04/01/2022, Additional history exists Dental Perio Charting 04/21/2025 04/19/2024 Dental Prophy 05/30/2025 11/25/2024 Hypertension Screening (#1) 09/30/2025 Dental BW 11/27/2025 11/25/2024, 04/19/2024 Dental Examination 11/27/2025 11/25/2024, 04/19/2024 Dental FMX/Pano 07/24/2029 07/22/2024, 04/19/2024 Imm-Pneumococcal 50+ Completed 05/04/2019, 05/04/20 19 Procedures Procedure Name Priority Date/Time Associated Diagnosis Comments LIMITED ORAL EVALUATION - PROBLEM FOCUSED Routine 01/26/2025 10:40 AM EDT Apical radicular cyst CASE PRESENTATION SUBS DTL & EXTENSIVE TX PLN Routine 01/26/2025 10:40 AM EDT Apical radicular cyst DENTAL CASE MANAGEMENT - MOTIVATIONAL INTV Routine 11/25/2024 10:20 AM EDT Caries PROPHYLAXIS - ADULT Routine 11/25/2024 1 0:20 AM EDT Caries BITEWINGS - FOUR RADIOGRAPHIC IMAGES Routine 11/25/2024 10:20 AM EDT Caries PERIODIC ORAL EVALUATION ESTABLISHED PATIENT Routine 11/25/2024 10:20 AM EDT Caries CARIES RISK ASSESSMENT & DOC FINDING MOD RISK Routine 11/25/2024 10:20 AM EDT Caries NUTRITIONAL COUNSELING CONTROL OF DENTAL DISEASE Routine 11/25/2024 10:20 AM EDT Caries ORAL HYGIENE INSTRUCTIONS Routine 11/25/2024 10:20 AM EDT Caries ORAL CANCER SCREENING Routine 11/25/2024 10:20 AM EDT Caries CASE PRESENTATION SUBS DTL & EXTENSIVE TX PLN Routine 11/25/2024 10:20 AM EDT Caries PANORAMIC RADIOGRAPHIC IMAGE Routine 07/22/2024 10:40 AM EST Apical radicular cyst from Last 3 Months or Most Recently Relevant to Health Maintenance Insurance [facility]
--- OUTSIDE RECORDS SUMMARY | 2025-02-09 14:21 | XMS_ITS | Patient Health Record ---
Author Organization [facility] Address [address], [place] [id number] Care Team Providers Care Pediatric Radiologist Name Role Phone Dillon Cameron Primary Care Provider [facility], Nursing Unavailable [phone] Flor Cho Unavailable [phone] Allergies Allergen (clinical drug ingredient) Drug/Non Drug Allergy documented on EMR Reaction Allergy Type Onset Date Status metformin metFORMIN stomach upset Drug Allergy Act leann Results Component Value Reference Range Notes MICROALBUMIN, RANDOM URINE ( W/CREATININE) Reviewed date:06/25/2024 10:24:20 PM Interpretation:Normal Performing Lab:NL2, VeriShow [facility] [address] [place], [place] [id number] Zayda Cotton Notes/Report: FASTING: UNKNOWN CREATININE, RANDOM [...] Lab: Notes/Report: High 166 COMPREHENSIVE METABOLIC PANE L-Phanfare Reviewed date:11/11/2024 12:10:14 PM Interpretation:Normal Performing Lab:NLSetuServ, VeriShow [facility] Zayda Cotton Notes/Report: NON-FASTING NON-FASTING GLUCOSE [...] A1c Reviewed date:11/21/2024 09:42:59 AM Interpretation:7.9 Performing Lab:SAYSetuServ, VeriShow [facility] Zayda Cotton Notes/Report: NON-FASTING NON-FASTING HEMOGLOBIN [...] A1c for diagnosis of diabetes for children. CT Chest High Resolution WO Reviewed date:01/08/2025 05:56:29 PM Interpretation:Abnormal Performing Lab: Notes/Report: Abnormal GLYCOHEMOGLOBIN PROFILE Reviewed date:03/10/2024 05:15:29 PM Interpretation:7.3 Performing Lab: Notes/Report: Original Ordering Provider: DILLON CAMERON MD [employer], [place] [address] [employer] Worker - Katja Rodarte MD GLYCATED HEMOGLOBIN A1C 7.3 <6.5 % ESTIMATED AVERAGE GLUCOSE 163 PROSTATIC SPECIFIC ANTIGEN Reviewed date:03/10/2024 05:18:04 PM Interpretation:4.3 Performing Lab: Notes/Report: Original Ordering Provider: DILLON CAMERON MD [employer], [place] [address] [employer] Worker - Katja Rodarte MD PROSTATIC SPECIFIC ANTIGEN 4.3 0.0-4.0 ng/mL The Siemens Advia Centaur Chemiluminescent Immunoassay is used. Results obtained with different assay methods or kits cannot be used interchangeably. Results cannot be interpreted as absolute evidence of the presence or absence of malignant disease MICROALB/CREAT RATIO, RANDOM Reviewed date:03/10/2024 05:15:41 PM Interpretation:35 Performing Lab: Notes/Report: Original Ordering Provider: DILLON CAMERON MD [employer], [place] [address] [employer] Worker - Katja Rodarte MD MICROALBUMIN, RANDOM 12.7 [...] Lab: Notes/Report: Normal Reason For Referral Reason Left shouldr pian wi th minimal resonse to injection in November; unable to tolerate PT. ?tear; ?caulitis;?other Diagnosis 1 Bursitis of left cathy ulder (M75.52) Referral Organization [facility] Referring Provider First Name Dillon Referring Provider Last Name Nisha Referring Provider Speciality Internal M edicine Referred Provider [facility] Referred Provider Specialty Orthopedic S urgery General Rossy Caputo 10/2023 09:54:56 AM >Notes faxed to [phone],phone# [phone] Katelyn 04/05/2024 11:01:58 AM > pt attended Ayse lowe Katelyn 04/18/2024 03:18:14 PM > notes received and put into provider's folder Referral Priority Routine Referral Appointment Date 03/29/2024 Reason [facility] [place]: PSa gradually increasing-now over 4 (Please send all PSA results with consult request) Diagnosis 1 Elevated prostate sp ecific antigen [PSA] (R97.20) Referral Organization [facility] Referring Provider First Name Dillon Referring Provider Last Name Nisha Referring Provider Speciality Internal M edicine Referred Organization [facility] Referred Provider [facility] er, Urology Services Referred Address [address], [place],[id number] Referred Provider Specialty Urology General Notes Kasey Tavera 11/30/2024 02:13:33 PM > p/w faxed with labs Referral Priority Routine Referral Appointment Date 02/09/2025 Reason [facility] Intervention [facility] pulmonology retsrictive lung disease with crackles on exam. 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 CT pending; PFT [place] [facility] [place] December . NOTE: CT with evcidence of UIP biut allso worriseme RLL mass. PEt being ordrered. Studies are at [facility] see [facility] scan- need him seen much sooner rather than later Referral Organization [facility] Referring Provider First Name Dillon Referring Provider Last Name Nisha Referring Provider Speciality Internal M edicine Referred Organization [facility] Referred Provider [facility], Pulmunary ([facility]) Referred Address [address] [facility],[place], [place],[id number],[place] Referred Provider Specialty Pulmonary Di seases General Notes Kasey Tavera 02/02/2025 03:36:41 PM > Dr cameron spoke with [facility] they will contact the pt directly sometime next week to schedule an appt, Kasey Tavera 02/03/2025 08:01:27 AM > see other referral Referral Priority Urgent Reason [facility] Interventional p ulmonology and [facility] [address] 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 Needs to see interventional pulmonology and [pulmonary consult unless intersttial disease is all tumor. presented with some dyspnea on exertion. nonsmoker Diagnosis 1 Malignant neoplasm o f lower lobe, right bronchus or lung (C34.31) Referral Organization [facility] Referring Provider First Name Dillon Referring Provider Last Name Nisha Referring Provider Speciality Internal M edicine Referred Organization [facility] Referred Provider [facility], Pulmunary ([facility]) Referred Address [address] [facility] [address],[place],[id number],[place] Referred Provider Specialty Pulmonary Di seases General Notes Kasey Tavera 02/03/2025 08:02:07 AM > Dr Cameron contacted [facility] which will contact pt directly next week to schedule appts with both pulm departments at [facility]. Faxed referral to [facility], Kasey Tavera 02/08/2025 11:02:43 AM > can you print note and fax for scanning. said he is booked for biopsy 02/22 Referral Priority Routine Referral Appointment Date 02/07/2025 Medications Medication SIG (Take, Route, Frequency, Duration) Notes Start Date End Date Status FreeStyle Lite Test Strips, 50 E11.9 tests daily for 50 days E11.9; testing 1 times a day Active Metoprolol Succinate ER 25 mg TAKE 1 TAB ORALLY ONCE A DAY (REPLACES METOPTOLOL TARTRATE 25 2/DAY) for 30 Active glipiZIDE 10 mg 1 tab(s) orally twic e a day for 30 days Active Trulicity Pen 3 mg/0.5 mL DIRECTED INJECT SUBCUTANEOUSLY ONCE A WEEK 28 DAYS SUBCUTANEOUSLY ONCE A WEEK DIAGNOSIS E11.9; REPLACES 1.5MG DOSE 28 DAYS for 30 Active Terbinafine Hydrochloride, Topical 1% 1 renea applied topically 2 times a day for 14 days 12/29/2023 Not-Taking tamsulosin 0.4 mg 2 cap(s) orally once a day for 30 day(s) Active Freestyle Lancet, 100 tests twice a day for 50 days 02/26/2022 Active FreeStyle Lite Glucose Monitor, 1 for 100 days Active Sildenafil Citrate 100 mg 1 tab(s) orally one hour before sexual activity for 30 days sent to [facility] 09/16/2022 Active Farxiga 10 mg TAKE 1 TAB BY MOUTH EVERY DAY ORALLY ONCE A DAY 30 DAYS for 30 Active famotidine 40 mg 1 tab(s) orally once a day (at bedtime) for 30 days 07/09/2023 Active lisinopril 10 mg 1 tab(s) orally once a day for 30 days note dose change Active Aspirin Low Dose 81 mg TAKE ONE TABLET BY MOUTH ONCE DAILY for 90 days Active pregabalin 100 mg 1 cap(s) orally 2 times a day; on or after 11/01/23 for 30 days 01/05/2025 Active simvastatin 20 mg 1 tab(s) orally once a day (at bedtime) for 30 day(s) Active Immunizations Vaccine Route Administration Date Status [...] Administered Hepatitis A IM Intramuscular 06/30/2023 Administered [facility] [id number] Shingrix (Zoster) Unknown 10/22/2022 Administered Flu-IIV4, p-free Unknown 05/05/2018 Administered MMR Unknown 05/27/2017 Administered Fluzone Unknown 05/19/2016 Administered Td Unknown 06/09/2015 Administered COMIRNATY Pfizer COVID-19 Vaccine 12y+ Unknown 06/05/2023 Administered Fluzone Unknown 04/19/2013 Administered Fluzone Unknown 05/03/2014 Administered Fluzone Unknown 05/06/2017 Administered Shingrix (Zoster) Unknown 01/20/2023 Administered COMIRNATY Pfizer COVID-19 Vaccine 12y+ Unknown 06/24/2024 Administered Influenza Unknown 06/24/2024 Administered COMIRNATY Pfizer COVID-19 Vaccine 12y+ Unknown 01/14/2025 Administered Social History Tobacco Use: Social History Observation Description Date Details (start date - stop date) Never Smoker NA - NA Sex Assigned At : Social History Observation Description Sex Assigned At Male Tobacco Use Assessment MU Question Answer Notes What is your current smoking status? nonsmoker Problems Problem Type SNOMED Code ICD Code Onset Dates Problem Status W/U Status Risk Notes Problem Malignant neopla sm of lower lobe, right bronchus or lung (C34.31) Active confirmed Problem Type II diabetes mellitus without complication (946474005) Type 2 diabetes mellitus without complications (E11.9) Active confirmed Problem Overweight (822762380) Overweight (E66.3) Active confirmed Problem Hyperlipidemia (05759403) Hyperlipidemia, unspecified (E78.5) Active confirmed Problem Essential hypertension (65563582) Essential (primary) hypertension (I10) Active confirmed Problem Acute non-ST segment elevation myocardial infarction (031827832) Non-ST elevation (NSTEMI) myocardial infarction (I21.4) Active confirmed Problem Atherosclerotic heart disease of [place] coronary artery without angina pectoris (070548230937143) Atherosclerotic heart disease of [place] coronary artery without angina pectoris (I25.10) Active confirmed Problem Allergic rhinitis due to food (346547021) Allergic rhinitis due to food (J30.5) Active confirmed Problem Disorder of lung (54068527) 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 confirmed Problem Left side sciatica (276317325918614) Sciatica, left side (M54.32) Active confirmed Problem Diastasis of muscle (779483964) Separation of muscle (nontraumatic), unspecified site (M62.00) Active confirmed Problem Bursitis of left shoulder (581253854918677) Bursitis of left shoulder (M75.52) Active confirmed Problem Erectile dysfunction (disorder) (160244472) Erectile dysfunction due to diseases classified elsewhere (N52.1) Active confirmed Problem Dysphagia (52953693) Dysphagia, unspecified (R13.10) Active confirmed Problem Lower urinary tract symptoms due to benign prostatic hypertrophy (56909314316344) Benign prostatic hyperplasia with lower urinary tract symptoms (N40.1) Active confirmed Problem Body mass index 25-29 - overweight (270644048) Body mass index [BMI] 28.0-28.9, adult (Z68.28) Active confirmed Problem Sheltered homelessness (885042396746088) Sheltered homelessness (Z59.01) Active confirmed Vital Signs [...] Normal Encounters Encounter Location Date Provider Diagnosis [facility] [address] [place] [address] [place] [id number] 03/01/2024 Dillon Cameron Type 2 diabetes mellitus without complications E11.9 and Benign prostatic hyperplasia with lower urinary tract symptoms N40.[address] [id number] 03/08/2024 Dillon Cameron Type 2 diabetes mellitus without complications E11.9 and Bursitis of left shoulder M75.[address] [id number] 03/09/2024 Nursing [facility] Encounter for screening, unspecified Z13.9 [facility] [address] [phone] 03/22/2024 Flor Cho [facility] [address] [place] [id number] 03/29/2024 Dillon Cameron Encounter for screening for COVID-19 Z11.52 ; Elevated prostate specific antigen [PSA] R97.20 ; Type 2 diabetes mellitus without complications E11.9 ; Essential (primary) hypertension I10 ; Bursitis of left shoulder M75.52 ; Hyperlipidemia, unspecified E78.5 and Overweight E66.3 [facility] [address] [place] [id number] 06/23/2024 Dillon Cameron Type 2 diabetes mellitus without complications E11.9 ; Encounter for screening for COVID-19 Z11.52 ; Sheltered homelessness Z59.01 ; Benign prostatic hyperplasia with lower urinary tract symptoms N40.1 ; Bursitis of left shoulder M75.52 ; Atherosclerotic heart disease of [place] coronary artery without angina pectoris I25.10 and Essential (primary) hypertension I10 [facility] [address] [id number] 08/16/2024 Dillon Cameron Encounter for screening for COVID-19 Z11.52 ; Type 2 diabetes mellitus without complications E11.9 ; Sheltered homelessness Z59.01 ; Essential (primary) hypertension I10 and Bursitis of left shoulder M75.[address] [id number] 11/10/2024 Dillon Cameron Type 2 diabetes mellitus without complications E11.9 ; Dyspnea, unspecified R06.00 ; Encounter for screening for COVID-19 Z11.52 and Essential (primary) hypertension I10 [facility] [address] [id number] 12/22/2024 Dillon Cameron Encounter for screening for COVID-19 Z11.52 ; Other alveolar and parieto-alveolar conditions J84.09 ; Type 2 diabetes mellitus without complications E11.9 ; Sheltered homelessness Z59.01 ; Benign prostatic hyperplasia with lower urinary tract symptoms N40.1 and Atherosclerotic heart disease of [place] coronary artery without angina pectoris I25.[address] [id number] 02/19/2024 Dillon Cameron [address] [id number] 02/23/2024 Dillon Cameron Type 2 diabetes mellitus without complications E11.[address] [id number] 02/28/2024 Dillon Cameron [address] [id number] 03/01/2024 Dillon Cameron [address] [id number] 03/08/2024 Dillon Cameron [address] [id number] 03/16/2024 Dillon Balder [address] [id number] 03/29/2024 Dillon Cameron [address] [id number] 04/19/2024 Dillon Cameron [address] [id number] 09/27/2024 Dillon Cameron [address] [id number] 01/08/2025 Dillon Cameron Other nonspecific abnormal finding of lung field R91.[address] [id number] 01/25/2025 Dillon Cameron Type 2 diabetes mellitus without complications E11.[address] [id number] 02/02/2025 Dillon Cameron Other nonspecific abnormal finding of lung field R91.[address] [id number] 02/03/2025 Dillon Cameron Assessments Encounter Date Diagnosis (ICD Code) Assessment Notes Treatment Notes Treatment Clinical Notes Section Notes 03/01/2024 Type 2 diabetes mellitus without complications (ICD-10 - E11.9) 03/08/2024 Type 2 diabetes mellitus without complications [...] ahd nmoved rx's to [facility] and lkast Peterisophia wne to [facility] Charisse obrien. Stacia see hoe much prgress he makes [...] this as more possible ILD than cardiac. Bipreston lemuel to go after both: CXR (May [...] you are having concerning symptoms for COVID-19. 02/23/2024 Type 2 diabetes mellitus without complications (ICD-10 - E11.9) 01/08/2025 Other nonspecific abnormal finding of lung field (ICD-10 - R91.8) 01/25/2025 Type 2 diabetes mellitus without complications (ICD-10 - E11.9) 02/02/2025 Other nonspecific abnormal finding of lung field (ICD-10 - R91.8) 03/01/2024 Benign prostatic hyperplasia with lower urinary tract symptoms (ICD-10 - N40.1) 03/29/2024 Type 2 diabetes mellitus without complications [...] without complications (ICD-10 - E11.9) control improved! 03/29/2024 Essential (primary) hypertension (ICD-10 - I10) BP excellent and satying on lisino and beta cassandra 06/23/2024 Sheltered homelessness (ICD-10 - Z59.01) [facility] supported housing. having troublke with the heat 08/16/2024 Essential (primary) hypertension (ICD-10 - I10) BP adequate i current rx 11/10/2024 Essential (primary) hypertension (ICD-10 - I10) BP low for awhile. I am cutting back the lisinopril 12/22/2024 Sheltered homelessness (ICD-10 - Z59.01) supported housing at present-goingwe ll 03/29/2024 Bursitis of left shoulder (ICD-10 - [...] N40.1) PSA had gone up-wiaitng for urology 03/29/2024 Hyperlipidemia, unspecified (ICD-10 - E78.5) last lipids less than 2 years ago [place]. On statin-stacia recheck and next encounter 06/23/2024 Bursitis of left shoulder (ICD-10 - M75.52) [facility] going for MRI - iassume to look for tear or labral problem. At least he is more comfortable 12/22/2024 Atherosclerotic heart disease of [place] coronary artery without angina pectoris (ICD-10 - I25.10) clinicalle stable. Still wantt o get echo for this and pulm issues 03/29/2024 Overweight (ICD-10 - E66.3) IMPROVED! 06/23/2024 Atherosclerotic heart disease of [place] coronary artery without angina pectoris (ICD-10 - I25.10) well controlled 06/23/2024 Essential (primary) hypertension (ICD-10 - I10) BP excellent-no change at presnt 03/08/2024 Other Time spent in visit: 10 minutes Covid verbal screening negative. 03/29/2024 Other 06/23/2024 Other 08/16/2024 Other 11/10/2024 Other For now chalk up pan abd sx to metformin but reassess closely 12/22/2024 Other 03/22/2024 Pt came f or fill appt #14-pt states he had RCT (points to #6) and filling #18(pt points to) at [facility] and has appts for other fillings there. Pt prefers at this time to continue Tx at [facility]-states i am still healing from what they did there Pt schedued for recall exam here in Aug 2024. DPD/ar Plan Of Treatment Pending Test Test Name Order Date Blood Sugar/finger stick 11/17/2023 Blood Sugar/finger stick 09/16/2022 Blood Sugar/finger stick 06/02/2023 Blood Sugar/finger stick 07/09/2023 HEMOGLOBIN A1c 09/15/[address] Skull to Thighs 01/08/2025 ECHO EXAM OF HEART 11/10/2024 Next Appt Details Provider Name:Dillon Cameron, 02/14/2025 03:00:00 PM, [address] [place] [address], [place], [place], [phone], Insurance Providers Payer Name Payer Address Payer Phone Subscriber Number Group Number Insured Name Patient Relationship to Insured Coverage Start Date Coverage End Date [place] Medicare Part A [employer] [address] [place] [address] [id number] Henry Neville Self - patient is the insured 2 [employer] [address] [place] [address] [id number] Henry Neville Self - patient is the insured 3 Medications Administered Medication Instructions Date of Administration Dosage Notes Triamcinolone acetonide 07/09/2023 40 mg Left shoulder injection Kenalog - 40 LOT [id number] EXP 11/2023 [facility] [phone] Medical (General) History Medical History History ICD Code HTN Type 2 Diabetes High Cholesterol HX of [place] Hospitalization History Reason Date(Month/Year) [place] [id number]
--- NOTE | 2025-02-09 14:34 | MHC.OFFVIS ---
Intake Visit Reasons: elevated PSA Intake Note: Patient is present for ELEVATED PSA Urology Medication:TAMSULOSIN Antibiotic Allergy:NONE Blood Thinner:NONE Bulk Coolers Installer Required: No Allergies No Known Allergies Allergy (Verified 02/09/25 21:54) Medication List - Last Reconciled 02/09/25 by JOANNA Page dapagliflozin propanediol (Farxiga) 10 mg PO DAILY dulaglutide (Trulicity) mg subcut glipizide 10 mg PO BID lisinopril 10 mg PO DAILY meloxicam 15 mg PO DAILY PRN metoprolol succinate ER 25 mg PO DAILY pregabalin 100 mg PO BID simvastatin 20 mg PO BEDTIME tamsulosin 0.8 mg PO DAILY HPI Comments Details: Henry is a very pleasant 69-year-old male patient of Dr. Cameron. He has a past medical history of hypertension, type 2 diabetes, hyperlipidemia, and myocardial infarction. He presents to the office today as a new patient for an elevated PSA. In discussion with the patient today he reports having followed up with his PCP for an annual visit at which time his PSA was noted to be elevated and recommendations were made for urology referral for further assessment evaluation. In review of patient's medical records it appears PSA: 03/28 3.2, 03/29 4.3 He does report a longstanding history of a weak urinary stream and has been on Flomax for a couple of years now and feels this has been helpful. He otherwise denies any bothersome urinary issues. He denies any known family history of prostate cancer. MARTINEZ was offered however deferred. We did discussed potential causes of elevated PSA as well as further treatment options and risks and benefits of these treatment options. He denies urgency, urinary frequency, incontinence, nocturia, hematuria, dysuria, foul smelling urine, changes to urinary stream, flank pain, fever, and or chills. He is happy with his current voiding parameters on Flomax. In office urinalysis results reviewed with the patient today. He otherwise offers no other issues or concerns at this time. [facility] Medical History History of ID (myocardial infarction) High cholesterol Type 2 diabetes mellitus Hypertension Review of Systems Const All systems reviewed & are unremarkable except as noted in HPI and below Physical Exam Const General: cooperative, healthy appearing, comfortable, no acute distress, well developed, alert and awake Orientation/consciousness: patient oriented x3 Limitations: no limitations HEENT Head: Yes normal to inspection, Yes normocephalic and Yes atraumatic Ears: hearing grossly normal bilaterally Eyes General: appearance normal, both eyes and all related structures Neck Neck: Yes normal visual inspection and Yes trachea midline Chest Chest palpation & inspection: normal inspection of the chest Resp Effort & Inspection: normal respiratory effort and able to speak in complete sentences Cardio Rate: regular rate GI Inspection: Yes normal to inspection General: Yes no CVA tenderness Back/Spine/Pelvis Back: no CVA tenderness Skin General skin exam: no rashes or lesions noted Neuro General: patient oriented x3 Extrem General: Yes normal to inspection Psych Appearance: grossly normal and well kempt Mental Status: mental status grossly normal Speech and movement: Normal speech and movement present and Clear speech present Affect: normal affect Attitude: cooperative Thought process: Normal thought process present Thought content: Normal thought content present Insight: Fair insight present (Psych) Judgement: Fair judgement present (Psych) Results AMB Urinalysis, Automated UA Leukoctes 0 Lupis/uL Last Edit by JORDIN Nunn on 02/09/25 14:48 UA Nitrite Negative Last Edit by JORDIN Nunn on 02/09/25 14:48 UA Urobilinogen 0.2 mg/dL Last Edit by JORDIN Nunn on 02/09/25 14:48 UA Protein 15 mg/dL Last Edit by JORDIN Nunn on 02/09/25 14:48 UA pH 6.0 Last Edit by JORDIN Nunn on 02/09/25 14:48 UA Blood 0 Bret/uL Last Edit by JORDIN Nunn on 02/09/25 14:48 UA Specific [place] 1.015 Last Edit by JORDIN Nunn on 02/09/25 14:48 UA Ketone Negative Last Edit by JORDIN Nunn on 02/09/25 14:48 UA Bilirubin 1 mg/dL Last Edit by JORDIN Nunn on 02/09/25 14:48 UA Glucose 1000 mg/dL Last Edit by JORDIN Nunn on 02/09/25 14:48 Results Reviewed Results Reviewed: Laboratory Last Values Urine pH (Auto) 6.0 02/09/25 14:47 Specific [place] (Auto) 1.015 02/09/25 14:47 Urine Protein (Auto) 15 mg/dL 02/09/25 14:47 Glucose (UA)(Auto) 1000 mg/dL 02/09/25 14:47 Urine Ketones (Auto) Negative 02/09/25 14:47 Urine Blood (Auto) 0 Bret/uL 02/09/25 14:47 Urine Nitrite (Auto) Negative 02/09/25 14:47 Urine Bilirubin (Auto) 1 mg/dL 02/09/25 14:47 Urine Urobilinogen (Auto) 0.2 mg/dL 02/09/25 14:47 Leukocyte Esterase (Auto) 0 Lupis/uL 02/09/25 14:47 Assessment & Plan Assessment & Plan (1) Elevated PSA: Code(s): R97.20 - Elevated prostate specific antigen [PSA] Category: Medical Plan In office urinalysis results reviewed with the patient today; as noted above. Continue Flomax as discussed and prescribed. We did discussed potential causes of elevated PSA as well as further treatment options and risks and benefits of these treatment options. MARTINEZ was offered however deferred. Will obtain redraw of PSA with no sex the night before, no caffeine morning of, and no heavy lifting 1-2 days prior. Will obtain retroperitoneal ultrasound for further assessment evaluation. He currently denies any bothersome urinary issues. He reports be happy with current voiding parameters. Follow-up in 1-3 months with imaging and labs; or sooner with any issues, concerns, and or questions. Orders: Orders AMB Urinalysis Automated Today Z13.9 - Encounter for screening, unspecified US retroperitoneal comp Today R97.20 - Elevated prostate specific antigen [PSA] PSA,Total (Free>4and<10) Today R97.20 - Elevated prostate specific antigen [PSA] Patient Instructions: The patient had an opportunity to ask questions regarding the treatment plan. All questions were answered. Physical exam, labs, and imaging were discussed and reviewed in detail. As well as risks, benefits, and discussion of treatment choices. No major barriers to understanding were identified. The patient expressed understanding and agreement with the above treatment plan. The patient was made aware they should contact our office by phone for worsening of their current condition, the appearance of new symptoms, or with any questions or concerns. Compliance is encouraged with any medications and follow up testing that is ordered. It is a privilege to be allowed the opportunity to participate in? your urological care.? Again, if you have any questions or concerns If you have any questions or concerns please do not hesitate to contact me. The office is [phone]. This note is constructed using voice recognition software. While every effort has been made to ensure accuracy seat cover installer errors may have been included. Yours sincerely, JOANNA Page Coding Level of Care Code New Pt Level 3 (64072) Diagnoses Elevated PSA R97.20
== END 2025-02-09 15:16 | disposition home or self-care (01) ==
PROVIDERS: PCP Internal Medicine; Visit Provider Nurse Practitioner Family
DX: R97.20 Elevated prostate specific antigen [PSA] (principal); Z13.9 Encounter for screening, unspecified
CPT/HCPCS: 99203

== ENCOUNTER → 2025-02-09 14:18 | Outpatient (BNVA) | payer MEDICARE, MEDICAID, SELFPAY | PROVIDERS: PCP Internal Medicine; Visit Provider Nurse Practitioner Family | DX: R97.20 Elevated prostate specific antigen [PSA] (principal) | CPT/HCPCS: 81003; 99202 ==

== ENCOUNTER 2025-04-12 15:23 | Outpatient (REF) | payer MEDICARE, MEDICAID, SELFPAY ==
--- NOTE | ~2025-04-12 | US_ITS ---
EXAMINATION: US RETROPERITONEAL COMPLETE (RENAL) CLINICAL INFORMATION: Elevated PSA. COMPARISON: None available. TECHNIQUE: Real-time imaging of the kidneys and bladder. FINDINGS: RIGHT KIDNEY: 11.4 x 6.6 x 6.7 cm (SAG x AP x TRV). The kidney is normal in size, contour, and echogenicity. Renal cortical thickness is normal. No calculi or focal parenchymal lesions. There is mild pelvicaliectasis present. LEFT KIDNEY: 9.9 x 5.8 x 5.4 cm (SAG x AP x TRV). The kidney is normal in size, contour, and echogenicity. Renal cortical thickness is normal. No calculi or focal parenchymal lesions. No hydronephrosis. BLADDER: Well-distended. A right-sided small diverticulum is noted. The left ureteral jet was present. The right was not seen. Prevoid bladder volume is 227 mL. Postvoid bladder volume is 38 mL. The prostate is moderately enlarged, estimated volume of 49.6 mL. US/US retroperitoneal comp IMPRESSION: 1. Mild pelvicaliectasis of the right kidney, uncertain in etiology or clinical significance. Kidneys otherwise normal. 2. Small right-sided bladder diverticulum. There was 38 mL postvoid residual. Urinary bladder otherwise normal. 3. Moderate prostate enlargement with estimated volume of 49.6 mL. Electronically signed by: Pillo Merchant MD 04/12/2025 04:03 PM EDT
== END 2025-04-12 15:24 | disposition home or self-care (01) ==
LOC: HO.US 15:23
PROVIDERS: PCP Internal Medicine; Visit Provider Nurse Practitioner Family
DX: R97.20 Elevated prostate specific antigen [PSA] (principal)
CPT/HCPCS: 76770

== ENCOUNTER → 2025-04-12 15:26 | Outpatient (BNV) | payer MEDICARE, MEDICAID, SELFPAY | PROVIDERS: PCP Internal Medicine; Visit Provider Radiology Diagnostic Radiology | DX: N32.3 Diverticulum of bladder (principal); N40.0 Benign prostatic hyperplasia without lower urinary tract symptoms | CPT/HCPCS: 76770 ==